=== PATIENT | female | born 1940 | race Caucasian/White ===

== ENCOUNTER → 2019-03-17 | Outpatient (CLI) | payer MEDICARE, OTHER ==
--- NOTE | 2019-03-17 11:21 | Diagnostic Imaging Report ---
PROCEDURE: MRI lumbar spine. TECHNIQUE: Multiplanar, multisequence MRI of the lumbar spine was performed without contrast. INDICATION: Right-sided lower back pain. COMPARISON: None. FINDINGS: For the purposes of this exam, last well-formed disc space is denoted to be the L5-S1 level. Evaluation of static alignment demonstrates moderate levoscoliotic deformity epicentered at the L1 level. No significant dana or retrolisthesis is seen. There is no evidence of jumped facets. Vertebral body heights are maintained. There is no evidence of acute fracture. Marrow signal demonstrates probable atypical hemangiomas within the T11 and T12 vertebral bodies. Otherwise, marrow signal is unremarkable. There is multilevel intervertebral disc height loss with anterior and posterior disc osteophyte complex formations. Visualized portions of the distal cord are unremarkable. Conus terminates at approximately the L1-L2 level. No abnormal intrathecal filling defects are seen. Pre-and paravertebral soft tissue structures are within normal limits. Axial images demonstrate the following: T12-L1: There is mild broad-based posterior disc bulge which results in minimal flattening of the anterior thecal sac. There is otherwise no significant spinal canal or neural foraminal stenosis. L1-L2: There is asymmetric right-sided endplate osteophyte formation resulting in mild asymmetric narrowing of the right neural foramen. Spinal canal and left neural foramen are unremarkable. L2-L3: There is mild broad-based posterior disc bulge and bilateral ligamentum flavum laxity and facet arthropathy. As a result, there is mild narrowing of the spinal canal and bilateral neural foramen. L3-L4: There is broad-based posterior disc bulge with bilateral ligamentum flavum laxity and facet arthropathy. As a result, there is mild narrowing of the spinal canal and bilateral neural foramen. L4-L5: There is broad-based posterior disc bulge with bilateral ligamentum flavum laxity and facet arthropathy. Multiple small synovial cysts are noted involving the bilateral facets both anteriorly and posteriorly as well. As a result, there is moderate spinal canal stenosis. There is also mild narrowing of the bilateral neural foramen. L5-S1: There is slight broad-based posterior disc bulge and bilateral facet arthropathy. As a result, there is mild narrowing of the spinal canal and bilateral neural foramen. IMPRESSION: 1. Multilevel degenerative changes of the lumbar spine, greatest at L4-L5. 2. No acute fracture or dislocation. Dictated by: Dictated on workstation # [id number]
== END ==
LOC: RAD 09:56
PROVIDERS: ATTEND Nurse Practitioner Family
DX: M47.816 Spondylosis without myelopathy or radiculopathy, lumbar region (principal)
CPT/HCPCS: 72148

== ENCOUNTER 2019-09-19 19:14 | Inpatient (IN) | payer MEDICARE, OTHER ==
[~2019-09-19] VITALS: Ht 154.9 cm; Wt 76.3 kg
--- NOTE | 2019-09-19 19:49 | ED Neurological Problem ---
General Chief Complaint: Neuro-Stroke Like Symptoms Stated Complaint: EYE PROBLEMS/CONFUSION/HIGH BLOOD PRESSURE History of Present Illness Date Seen by Provider: Sep 19, 2019 Time Seen by Provider: 19:45 Initial Comments Couple hours ago patient had an episode where she couldn't form words also had right-sided visual loss and then slight left-sided visual loss no weakness in ei ther extremity and weakness in the face lasted very transiently she is returned to normal now but has a headache is quite anxious her pressure is high she is concerned about the possibility of a stroke she's only on a couple medications has had no blood pressure problems in the past takes Xanax omeprazole Timing/Duration: 1-3 hours Associated Symptoms: No loss of consciousness, No nausea/vomiting, No paresthesia, No slurred speech, No trouble walking; vision changes; No weakness Allergies and Home Medications Allergies Coded Allergies: No Known Drug Allergies (Unverified Allergy, Mild, 07/16/09) Patient Home Medication List Home Medication List Reviewed: Yes Review of Systems Review of Systems Constitutional: No chills, No fever, No weakness Eyes: Blurred Vision, Decreased Acuity, Vision Changes Ears, Nose, Mouth, Throat: no symptoms reported; denies ear pain, denies nose pain Respiratory: No cough, No short of breath, No wheezing Cardiovascular: No chest pain, No palpitations Gastrointestinal: No abdominal pain, No nausea, No vomiting Genitourinary: No dysuria, No frequency Musculoskeletal: No joint swelling, No muscle pain, No muscle weakness, No neck pain Skin: No lesions, No rash Psychiatric/Neurological: Anxiety; Denies Headache, Denies Numbness, Denies Tingling, Denies Unable to Move Lower Ext, Denies Unable to Move Upper Ext, Denies Weakness Past Cjunsaw-Crbbvb-Ispqrs Hx Past Med/Social Hx: Reviewed Nursing Past Med/Soc Hx Patient Social History Alcohol Use: Denies Use Recreational Drug Use: No Smoking Status: Never a Smoker 2nd Hand Smoke Exposure: No Recent Foreign Travel: No Contact w/Someone Who Travel: No Recent Hopitalizations: No Physical Abuse: No Sexual Abuse: No Mistreated: No Fear: No Past Medical History Surgeries: No Respiratory: No Cardiac: No Neurological: No Reproductive Disorders: No Sexually Transmitted Disease: No Genitourinary: No Gastrointestinal: No Musculoskeletal: No Endocrine: No HEENT: No Cancer: No Psychosocial: No Integumentary: No Blood Disorders: No Physical Exam Vital Signs Vital Signs - First Documented 09/19/19 19:15 Temp 37.0 Pulse 103 Resp 20 B/P (MAP) 230/125 (160) Pulse Ox 98 O2 Delivery Room Air Capillary Refill : Height, Weight, BMI Height: '" Weight: lbs. oz. kg; BMI Method: General Appearance: WD/WN, mild distress HEENT: PERRL/EOMI, normal ENT inspection, TMs normal, pharynx normal Neck: non-tender, full range of motion; No carotid bruit Respiratory: lungs clear, normal breath sounds Cardiovascular: regular rate, rhythm, no murmur Gastrointestinal: normal bowel sounds, non tender, soft Extremities: normal range of motion, normal inspection Neurologic/Psychiatric: no motor/sensory deficits, alert, normal mood/affect, oriented x 3 Coordination/Gait: normal finger to nose, normal gait Motor/Sensory: no motor deficit, no sensory deficit Reflexes: 2+ Bicep (R), 2+ Bicep (L), 2+ Knee (R), 2+ Knee (L) Skin: normal color, warm/dry Stroke NIH Stroke Scale Assessment Level of Consciousness: 0=Alert (0), Level of Consciousness-Questions: 0=Answers both month/age (0), LOC Commands: 0=Performs both tasks (0), Visual Chen: 0=No visual loss (0), Facial Movement (Facial Paresis): 0=Normal symmetrical mnt (0), Motor Function-Arms Right: 0=No drift (0), Motor Function-Arms Left: 0=No drift (0), Motor Function-Legs Right: 0=No drift (0), Motor Function-Legs Left: 0=No drift (0), Limb Ataxia: 0=Absent (0), Sensory: 0=Normal:no loss (0), Best Language: 0=No aphasia (0), Dysarthria: 0=Normal (0), Extinction & Inattention: 0=No abnormality (0), Total: Progress/Results/Core Measures Results/Orders Lab Results Laboratory Tests Test 09/19/19 19:30 Range/Units White Blood Count 5.6 4.3-11.0 10^3/uL Red Blood Count 4.70 4.35-5.85 10^6/uL Hemoglobin 13.8 11.5-16.0 G/DL Hematocrit 43 35-52 % Mean Corpuscular Volume 92 80-99 FL Mean Corpuscular Hemoglobin 29 25-34 PG Mean Corpuscular Hemoglobin Concent 32 32-36 G/DL Red Cell Distribution Width 12.5 10.0-14.5 % Platelet Count 233 130-400 10^3/uL Mean Platelet Volume 9.8 7.4-10.4 FL Neutrophils (%) (Auto) 47 42-75 % Lymphocytes (%) (Auto) 40 12-44 % Monocytes (%) (Auto) 10 0-12 % Eosinophils (%) (Auto) 2 0-10 % Basophils (%) (Auto) 1 0-10 % Neutrophils # (Auto) 2.5 1.8-7.8 X 10^3 Lymphocytes # (Auto) 2.1 1.0-4.0 X 10^3 Monocytes # (Auto) 0.5 0.0-1.0 X 10^3 Eosinophils # (Auto) 0.1 0.0-0.3 10^3/uL Basophils # (Auto) 0.1 0.0-0.1 10^3/uL Neutrophils % (Manual) 46 % Lymphocytes % (Manual) 42 % Monocytes % (Manual) 9 % Eosinophils % (Manual) 1 % Basophils % (Manual) 1 % Band Neutrophils 1 % Blood Morphology Comment NORMAL Sodium Level 140 135-145 MMOL/L Potassium Level 4.4 3.6-5.0 MMOL/L Chloride Level 100 98-107 MMOL/L Carbon Dioxide Level 25 21-32 MMOL/L Anion Gap 15 H 5-14 MMOL/L Blood Urea Nitrogen 29 H 7-18 MG/DL Creatinine 0.88 0.60-1.30 MG/DL Estimat Glomerular Filtration Rate > 60 BUN/Creatinine Ratio 33 Glucose Level 105 70-105 MG/DL Calcium Level 10.0 8.5-10.1 MG/DL Corrected Calcium 8.5-10.1 MG/DL Total Bilirubin 0.4 0.1-1.0 MG/DL Aspartate Amino Transf (AST/SGOT) 22 5-34 U/L Alanine Aminotransferase (ALT/SGPT) 15 0-55 U/L Alkaline Phosphatase 82 40-136 U/L Total Protein 7.7 6.4-8.2 GM/DL Albumin 4.6 H 3.2-4.5 GM/DL Leslie SORENSENMARYLIN L JR, MD Cbc And Manual Diff (09/19/19 19:41) Comprehensive Metabolic Panel (09/19/19 19:41) Ua Culture If Indicated (09/19/19 19:41) Ekg Tracing (09/19/19 19:41) Ct Head Wo (09/19/19 19:49) Vital Signs/I&O 09/19/19 19:15 Temp 37.0 Pulse 103 Resp 20 B/P (MAP) 230/125 (160) Pulse Ox 98 O2 Delivery Room Air Progress Progress Note : Time: 21:28 Progress Note With a negative NIH and ABCD 2 score of 4 at this point we are observing her for stroke workup as well discussed with Dr. Nowak exception transferred down at [facility]. Initial ECG Impression Date: Sep 19, 2019 Initial ECG Impression Time: 19:26 Initial ECG Rhythm: Normal Sinus Initial ECG Intervals: Normal Initial ECG Impression: Normal Departure Communication (Admissions) Time/Spoke to Admitting Phy: 21:29 TIA with ABCD score of 400 for observation and further workup Impression Primary Impression: TIA (transient ischemic attack) Disposition: XFER SHT-TRM HOSP Condition: Stable Admissions Decision to Admit Reason: Admit from ER (General) Decision to Admit/Date: Sep 19, 2019 Time/Decision to Admit Time: 21:30 Transfer Transfer Reason: Exceeds level of care Departure-Patient Inst. Referrals: SUZANNE SELF APRN (PCP) Primary Care Physician MARYLIN SORENSEN JR, MD Sep 19, 2019 19:49
[2019-09-19 20:11] LABS: HEMATOCRIT 43 % (35-52); HEMOGLOBIN 13.8 G/DL (11.5-16.0); MEAN CORPUSCULAR HEMOGLOBIN 29 PG (25-34); MEAN CORPUSCULAR HGB CONC 32 G/DL (32-36); MEAN CORPUSCULAR VOLUME 92 FL (80-99); WHITE BLOOD COUNT 5.6 10^3/uL (4.3-11.0)
[2019-09-19 20:12] LABS: BASOPHILS # (AUTO) 0.1 10^3/uL (0.0-0.1); BASOPHILS % (AUTO) 1 % (0-10); EOSINOPHILS # (AUTO) 0.1 10^3/uL (0.0-0.3); EOSINOPHILS % (AUTO) 2 % (0-10); LYMPHOCYTES # (AUTO) 2.1 X 10^3 (1.0-4.0); LYMPHOCYTES % (AUTO) 40 % (12-44); MEAN PLATELET VOLUME 9.8 FL (7.4-10.4); MONOCYTES # (AUTO) 0.5 X 10^3 (0.0-1.0); MONOCYTES % (AUTO) 10 % (0-12); NEUTROPHILS # (AUTO) 2.5 X 10^3 (1.8-7.8); NEUTROPHILS % (AUTO) 47 % (42-75); PLATELET COUNT 233 10^3/uL (130-400); RED CELL DISTRIBUTION WIDTH 12.5 % (10.0-14.5)
[2019-09-19 20:28] LABS: BAND NEUTROPHILS 1 %; BASOPHILS % (MANUAL) 1 %; EOSINOPHILS % (MANUAL) 1 %; LYMPHOCYTES % (MANUAL) 42 %; MONOCYTES % (MANUAL) 9 %; NEUTROPHILS % (MANUAL) 46 %; RBC MORPH NORMAL
[2019-09-19 20:29] LABS: ALANINE AMINOTRANSFERASE 15 U/L (0-55); ALKALINE PHOSPHATASE 82 U/L (40-136); BILIRUBIN,TOTAL 0.4 MG/DL (0.1-1.0); BUN/CREATININE RATIO 33; CARBON DIOXIDE 25 MMOL/L (21-32); CHLORIDE 100 MMOL/L (98-107); CREATININE SERUM 0.88 MG/DL (0.60-1.30); GFR ESTIMATED > 60; GLUCOSE 105 MG/DL (70-105); POTASSIUM 4.4 MMOL/L (3.6-5.0); SODIUM 140 MMOL/L (135-145); TOTAL PROTEIN 7.7 GM/DL (6.4-8.2)
[2019-09-19 20:30] LABS: ALBUMIN 4.6 GM/DL (3.2-4.5)
--- NOTE | 2019-09-19 20:50 | Diagnostic Imaging Report ---
PROCEDURE: CT head without contrast. TECHNIQUE: Multiple contiguous axial images were obtained through the brain without the use of intravenous contrast. Auto Exposure Controls were utilized during the CT exam to meet ALARA standards for radiation dose reduction. INDICATION: Blurred vision There are no prior studies available for comparison. There is no mass, shift to the midline or hemorrhage to indicate an acute abnormality. The ventricles are not abnormally dilated. The bone windows show no evidence for a fracture or for a destructive lesion. The orbits are symmetrical and within normal limits. The sinuses, where visualized, are clear. IMPRESSION: 1. There is no evidence for an acute intracranial abnormality. There is no sign of a mass lesion either. 2. If clinical concern regarding an underlying abnormality persists, then MRI would be recommended for further study. Dictated by: Dictated on workstation # [id number]
[2019-09-19] MEDS ORDERED: ASPIRIN 81 MG CHEW (CHILDREN'S ASA) ONE (21:38)
[2019-09-19] MEDS ORDERED: ASPIRIN 81 MG CHEW (CHILDREN'S ASA) PO SCH (21:45)
[2019-09-19] MEDS ORDERED: CLOPIDOGREL 300 MG (PLAVIX) TABLET PO ONE (21:45)
[2019-09-19 22:38] LABS: BACTERIA,URINE NEGATIVE /HPF; BILIRUBIN,URINE NEGATIVE (NEGATIVE); CLARITY,URINE CLEAR; COLOR,URINE PALE YELLOW; GLUCOSE, URINE (UA) NEGATIVE (NEGATIVE); KETONES,URINE NEGATIVE (NEGATIVE); LEUKOCYTE ESTERASE ,URINE NEGATIVE (NEGATIVE); NITRITE,URINE NEGATIVE (NEGATIVE); PROTEIN,URINE NEGATIVE (NEGATIVE); SQUAMOUS EPITHELIAL CELL,UR 0-2 /HPF; WBC,URINE RARE /HPF
--- NOTE | 2019-09-19 22:51 | NUR ---
GARIMA ONTIVEROS admitted to room 415-1, with an admitting diagnosis of TIA, on 09/19/19 from [place] ED via EMS, accompanied by EMS AND SON.GARIMA ONTIVEROS introduced to surroundings, call light, bed controls, phone, TV, temperature control, lights, meal times, smoking policy, visitor policy, side rail policy, bathrooms and showers. Patient Rights given to patient in the handbook. GARIMA ONTIVEROS verbalizes understanding that [facility] is not responsible for the loss or damage to any personal effects or valuables that are kept in the patients possession during their hospitalization. GARIMA ONTIVEROS verbalizes understanding of Interdisciplinary Patient Education. Patient and/or family were informed about the Rapid Response Team and its purpose.
[2019-09-19 23:06] VITALS: BP 187/110
--- NOTE | 2019-09-19 23:14 | NUR ---
PT B/P 187/110. PULSE 114. DR. WALTERS CALLED ORDER TO GIVE 1 TIME DOSE METOPROLOL 5MG IV AND TELEMETRY.
[2019-09-19] MEDS ORDERED: meTOprolol 5 MG/5 ML (LOPRESSOR) VIAL IV ONE (23:15)
[2019-09-19] MEDS ORDERED: meTOprolol 5 MG/5 ML (LOPRESSOR) VIAL ONE (23:38)
[2019-09-20 02:01] VITALS: BP 187/82
[2019-09-20 04:22] VITALS: BP 178/75
[2019-09-20 07:03] LABS: BASOPHILS % (AUTO) 1 % (0-10); EOSINOPHILS # (AUTO) 0.1 10^3/uL (0.0-0.3); EOSINOPHILS % (AUTO) 3 % (0-10); HEMATOCRIT 39 % (35-52); HEMOGLOBIN 12.6 G/DL (11.5-16.0); LYMPHOCYTES # (AUTO) 1.4 X 10^3 (1.0-4.0); LYMPHOCYTES % (AUTO) 33 % (12-44); MEAN CORPUSCULAR HEMOGLOBIN 29 PG (25-34); MEAN CORPUSCULAR HGB CONC 33 G/DL (32-36); MEAN CORPUSCULAR VOLUME 89 FL (80-99); MONOCYTES # (AUTO) 0.4 X 10^3 (0.0-1.0); MONOCYTES % (AUTO) 10 % (0-12); NEUTROPHILS # (AUTO) 2.4 X 10^3 (1.8-7.8); NEUTROPHILS % (AUTO) 54 % (42-75); PLATELET COUNT 197 10^3/uL (130-400); RED CELL DISTRIBUTION WIDTH 12.7 % (10.0-14.5); WHITE BLOOD COUNT 4.4 10^3/uL (4.3-11.0)
[2019-09-20 07:21] LABS: BUN/CREATININE RATIO 31; CALCIUM 9.3 MG/DL (8.5-10.1); CARBON DIOXIDE 23 MMOL/L (21-32); CHLORIDE 107 MMOL/L (98-107); CREATININE SERUM 0.78 MG/DL (0.60-1.30); GFR ESTIMATED > 60; GLUCOSE 95 MG/DL (70-105); POTASSIUM 4.1 MMOL/L (3.6-5.0); SODIUM 142 MMOL/L (135-145)
[2019-09-20 08:00] VITALS: BP 181/93
[2019-09-20] MEDS ORDERED: OMEP20CA13 PO (08:23)
[2019-09-20] MEDS ORDERED: ALPR0.5T7 PO (08:23)
[2019-09-20] MEDS ORDERED: MELO15TA39 PO (08:23)
--- NOTE | 2019-09-20 08:23 | NUR ---
NURSE RON CAME AND STATES PATIENT LISTED HER MEDICATIONS TO HER, SHE GAVE ME THE THREE PRESCRIPTION MEDS AND STATES THE PATIENT DOES NOT TAKE ANYTHING OTC. I UPDATED THE MED REC WITH THE LIST NURSE GAVE ME, IT MATCHES WHAT HAS BEEN FILLED ACCORDING TO THE EXT MED HX. I DID NOT RE INTERVIEW THE PATIENT AT THIS TIME.
[2019-09-20] MEDS ORDERED: ASPIRIN 81 MG CHEW (CHILDREN'S ASA) PO SCH (09:00)
[2019-09-20] MEDS ORDERED: GADOBUTROL 10 MMOL/10 ML (GADAVIST) VIAL IV ONE (10:30)
[2019-09-20] MEDS ORDERED: PANTOPRAZOLE 20 MG TABLET (PROTONIX) PO SCH (10:42)
--- NOTE | 2019-09-20 11:15 | NUR ---
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 Pt reports she is feeling better and is not having any symptoms. Pt reports she wants to go home today hopefully. Pt reports she has been well and never had a hospital stay. Pt aware they may be some tests, to determine that she is stable and about to discharge. She verbalizes understanding.
[2019-09-20 12:30] VITALS: BP 193/91
--- NOTE | 2019-09-20 12:33 | Diagnostic Imaging Report ---
EXAM: MRI BRAIN W/O CONTRAST INDICATION: Visual disturbances. COMPARISON: CT head without contrast 09/19/2019. FINDINGS: Moderate nonspecific T2 hyperintensities in the supratentorial white matter, chronic small vessel ischemic change. Mild generalized cerebral and cerebellar parenchymal volume loss. No restricted water diffusion or hemosiderin deposition. Normal morphology including the major midline structures, sella, posterior fossa and cerebellopontine angle. Normal intracranial flow voids. No hydrocephalus or extra-axial fluid collections. Postoperative changes in the globes. Paranasal sinuses and mastoids are clear. Normal bone marrow signal. IMPRESSION: Age-appropriate MRI of the brain. No acute findings. Dictated by: Dictated on workstation # [id number]
--- NOTE | 2019-09-20 12:34 | Diagnostic Imaging Report ---
PROCEDURE: MR angiography neck with contrast. TECHNIQUE: Contrast-enhanced MR angiography of the neck was performed. Source data was reformatted into rotating MIP projection. INDICATION: Visual disturbances. Hypertension. COMPARISON: None. FINDINGS: Contrast enhanced MRA of the neck demonstrates conventional aortic arch. The bilateral common, internal carotid and vertebral arteries are widely patent. No evidence of aneurysm or dissection. IMPRESSION: Normal MRA of the neck. Dictated by: Dictated on workstation # [id number]
--- NOTE | 2019-09-20 12:35 | Diagnostic Imaging Report ---
PROCEDURE: MR angiography of the brain without the use of contrast. TECHNIQUE: 3D [id number] non contrast enhanced MR angiography of the head was performed. A source data was reformatted into rotating MIP projections. INDICATION: Visual disturbances. Hypertension. COMPARISON: MRI brain also performed today. FINDINGS: Noncontrast [id number] intracranial MRA demonstrates a widely patent basilar, intracranial vertebral, internal carotid, anterior cerebral, middle cerebral and posterior cerebral arteries without evidence of aneurysm or dissection. IMPRESSION: Normal intracranial MRA. Dictated by: Dictated on workstation # [id number]
[2019-09-20] MEDS ORDERED: HYDROCHLOROTHIAZIDE 25 MG (HCTZ) TAB ONE (13:23)
[2019-09-20] MEDS ORDERED: HYDROCHLOROTHIAZIDE 25 MG (HCTZ) TAB PO NR (13:30)
--- NOTE | 2019-09-20 14:22 | Consultation-Cardiology ---
HPI-Cardiology Cardiology Consultation Date of Consultation 09/20/19 Date of Admission Time Seen by Provider: 14:16 Indication: Hypertensive emergency, TIA HPI Patient is a very pleasant 79 y/o female with no significant PMH, takes occasional Xanax for anxiety, history of GERD. Presented to [place] ER last night with complaints of aphasia. States she was visiting at a friends house when she had sudden onset of diffculty forming words, lasting approx 30min-1 hour. Associated transient loss of vision. Denies any one sided weakness. When patient arrived to ER she was noted to be severely hypertensive. Symptoms are now completely resolved. Denies any chest pain, dyspnea, dizziness or lightheadedness. 79-year-old lady admitted with hypertension and change in mental status, workup was described below, on my evaluation she was feeling well, asking to go home, dressed and ready to go. Was still severely hypertensive. Reporting occasional headache in the past. No chest pain. No palpitation. No syncope. Home Medications & Allergies Allergies: Coded Allergies: No Known Drug Allergies (Unverified , 07/16/09) Home Medication List Reviewed: Yes IBM-Bqewrr-Bxguwp Hx Patient Social History Marital Status: Employed/Student: retired Alcohol Use: Denies Use Recreational Drug Use: No Smoking Status: Never a Smoker 2nd Hand Smoke Exposure: No Recent Foreign Travel: No Recent Infectious Disease Expo: No Recent Hopitalizations: No Immunizations Up To Date Date of Influenza Vaccine: May 21, 2019 Past Medical History Anxiety GERD Family Medical History Significant Family History: CAD Over 55 Years Old Review of Systems-General Review of Systems Constitutional: see HPI; No chills, No diaphoresis, No fever, No weakness EENTM: blurred vision, vision loss (transient); No hearing loss Respiratory: No cough, No dyspnea on exertion, No orthopnea, No phlegm, No short of breath, No wheezing Cardiovascular: No chest pain, No edema, No Hx of Intervention, No palpitations, No syncope, No vascular heart diseas Gastrointestinal: No abdominal pain, No nausea, No vomiting Genitourinary: No dysuria, No frequency Musculoskeletal: No joint pain, No joint swelling, No muscle pain, No muscle weakness, No neck pain Skin: No lesions, No rash Psychiatric/Neurological: Anxiety Reviewed Test Results Reviewed Test Results Lab Laboratory Tests 09/19/19 19:30: White Blood Count 5.6, Red Blood Count 4.70, Hemoglobin 13.8, Hematocrit 43, Mean Corpuscular Volume 92, Mean Corpuscular Hemoglobin 29, Mean Corpuscular Hemoglobin Concent 32, Red Cell Distribution Width 12.5, Platelet Count 233, Mean Platelet Volume 9.8, Neutrophils (%) (Auto) 47, Lymphocytes (%) (Auto) 40, Monocytes (%) (Auto) 10, Eosinophils (%) (Auto) 2, Basophils (%) (Auto) 1, Neutrophils # (Auto) 2.5, Lymphocytes # (Auto) 2.1, Monocytes # (Auto) 0.5, Eosinophils # (Auto) 0.1, Basophils # (Auto) 0.1, Neutrophils % (Manual) 46, Lymphocytes % (Manual) 42, Monocytes % (Manual) 9, Eosinophils % (Manual) 1, Basophils % (Manual) 1, Band Neutrophils 1, Blood Morphology Comment NORMAL, Sodium Level 140, Potassium Level 4.4, Chloride Level 100, Carbon Dioxide Level 25, Anion Gap 15H, Blood Urea Nitrogen 29H, Creatinine 0.88, Estimat Glomerular Filtration Rate > 60, BUN/Creatinine Ratio 33, Glucose Level 105, Calcium Level 10.0, Corrected Calcium , Total Bilirubin 0.4, Aspartate Amino Transf (AST/SGOT) 22, Alanine Aminotransferase (ALT/SGPT) 15, Alkaline Phosphatase 82, Total Protein 7.7, Albumin 4.6H 09/19/19 22:00: Urine Color PALE YELLOW, Urine Clarity CLEAR, Urine pH 7.0, Urine Specific [place] 1.015L, Urine Protein NEGATIVE, Urine Glucose (UA) NEGATIVE, Urine Ketones NEGATIVE, Urine Nitrite NEGATIVE, Urine Bilirubin NEGATIVE, Urine Urobilinogen 0.2, Urine Leukocyte Esterase NEGATIVE, Urine RBC (Auto) NEGATIVE, Urine RBC NONE, Urine WBC RARE, Urine Squamous Epithelial Cells 0-2, Urine Crystals NONE, Urine Bacteria NEGATIVE, Urine Casts NONE, Urine Mucus NEGATIVE, Urine Culture Indicated NO 09/20/19 05:29: White Blood Count 4.4, Red Blood Count 4.33L, Hemoglobin 12.6, Hematocrit 39, Mean Corpuscular Volume 89, Mean Corpuscular Hemoglobin 29, Mean Corpuscular Hemoglobin Concent 33, Red Cell Distribution Width 12.7, Platelet Count 197, Mean Platelet Volume 10.0, Neutrophils (%) (Auto) 54, Lymphocytes (%) (Auto) 33, Monocytes (%) (Auto) 10, Eosinophils (%) (Auto) 3, Basophils (%) (Auto) 1, Neutrophils # (Auto) 2.4, Lymphocytes # (Auto) 1.4, Monocytes # (Auto) 0.4, Eosinophils # (Auto) 0.1, Basophils # (Auto) 0.0, Sodium Level 142, Potassium Level 4.1, Chloride Level 107, Carbon Dioxide Level 23, Anion Gap 12, Blood Urea Nitrogen 24H, Creatinine 0.78, Estimat Glomerular Filtration Rate > 60, BUN/Creatinine Ratio 31, Glucose Level 95, Calcium Level 9.3 ECG Impression ECG Initial ECG Rhythm: Normal Sinus Physical Exam Physical Exam Vital Signs Vital Signs - First Documented 09/19/19 19:15 Temp 37.0 Pulse 103 Resp 20 B/P (MAP) 230/125 (160) Pulse Ox 98 O2 Delivery Room Air Capillary Refill : Less Than 3 Seconds Height, Weight, BMI Height: '" Weight: lbs. oz. kg; 31.79 BMI Method: General Appearance: No Apparent Distress, WD/WN HEENT: PERRL/EOMI, Normal ENT Inspection Neck: Full Range of Motion, Non Tender, Supple Respiratory: Chest Non Tender, Lungs Clear, Normal Breath Sounds, No Accessory Muscle Use, No Respiratory Distress Cardiovascular: Regular Rate, Rhythm, No Edema, No Gallop, No JVD, No Murmur, Normal Peripheral Pulses Gastrointestinal: Normal Bowel Sounds, No Organomegaly, Non Tender, Soft Rectal: Deferred Back: No CVA Tenderness Extremity: Non Tender, No Calf Tenderness, No Pedal Edema Neurologic/Psychiatric: Alert, Oriented x3, water manager II-XII Norm as Tested Reflexes: 2+ Bicep (R), 2+ Bicep (L), 2+ Knee (R), 2+ Knee (L) A/P-Cardiology Admission Diagnosis Hypertensive emergency TIA Anxiety GERD Fam Hx CAD Assessment/Plan Hypertensive emergency- lopressor IV given in ER yesterday. Started on HCTZ. BP is elevated, I will d/c HCTZ, give additional IV Lopressor 5mg IV. Start Toprol XL 25mg daily, start lisinopril 10mg daily. Results of 2d Echo pending. TIA with aphasia and transient loss of vision, symptoms resolved. CT Head, MRA h ead, neck, brain all WNL. No acute process. GERD- maintained on Protonix Anxiety- maintained on Xanax PRN Fam Hx CAD with father with CABG > 55 y/o Thank you for allowing us to participate in the manangement of Ms. Fraire. This is Vaishnavi Muller PA-C, as a scribe for Dr. Cherry. Patient was seen and evaluated with Vaishnavi, examination performed, management plan was discussed, agree with the current scribed note, I made few changes to the note using Italic font Patient was ready to go home, on examination lungs were clear to auscultation, heart is regular, still hypertensive, she was given lisinopril 10 mg then another dose of 10 mg and Lopressor 5 mg IV and Toprol-XL 25 mg orally Discussed the management plan and recommended monitoring her blood pressure twice a day, using additional doses of lisinopril and Toprol as needed for elevated blood pressure over 180 Will discharge on Toprol-XL 25 mg daily and lisinopril 10 mg daily and hold off on the hydrochlorothiazide for now Clinical Quality Measures DVT/VTE Risk/Contraindication: Risk Factor Score Per Nursin RFS Level Per Nursing on Admit: 2=Moderate VAISHNAVI PIPER Sep 20, 2019 14:22 CHRISTIE CHERRY MD Sep 20, 2019 16:13
[2019-09-20] MEDS ORDERED: lisINopril 10 MG (PRINIVIL) TABLET PO SCH (14:30)
[2019-09-20] MEDS ORDERED: meTOprolol 5 MG/5 ML (LOPRESSOR) VIAL IV NR (14:30)
[2019-09-20 15:05] VITALS: BP 193/91
[2019-09-20] MEDS ORDERED: LISI10TA2 PO (15:09)
[2019-09-20] MEDS ORDERED: METO-387 PO (15:09)
[2019-09-20] MEDS ORDERED: lisINopril 10 MG (PRINIVIL) TABLET PO ONE (15:30)
--- NOTE | 2019-09-20 15:30 | NUR ---
CM/SS: Pt will leave today with scripts for medication and appointment scheduled with Dr. Cherry. No other identified needs. Pt is eager to return home.
[2019-09-20 16:54] LABS: CHOLESTEROL 206 MG/DL (< 200); HDL CHOLESTEROL 66 MG/DL (40-60); TRIGLYCERIDES 71 MG/DL (<150); VLDL CHOLESTEROL 14 MG/DL (5-40)
[2019-09-21] MEDS ORDERED: HYDROCHLOROTHIAZIDE 25 MG (HCTZ) TAB PO SCH (09:00)
--- NOTE | 2019-09-22 14:13 | Short Stay Summary ---
HPI History of Present Illness: Patient noted about 5 hours before arrival she was having trouble seeing out of right eye when trying to read, she also noted some difficulty with left eye but significantly less. She was then sitting at a long-term visiting and listening to the conversation going on around here she could not seem to understand what was going on, although she understood the individual words. She also felt she could not speak properly, could not put a thought together correctly although she could say words. A nurse there took her BP which was very high and they told her to go to the ER. Her symptoms resolved before leaving the ER and this morning she feels like her usual self. She does not have a history of hypertension, but has not been to see the doctor in a while as she is generally quite healthy. Source: patient Date seen by provider: Sep 22, 2019 Time Seen by Provider: 13:30 Attending Physician Rashi Werner MD PCP Shelby Guzmán Aprn Consult Date of Admission Sep 19, 2019 at 21:30 Home Medications Home Medications Reviewed patient Home Medication Reconciliation performed by pharmacy medication reconciliations photovoltaic installation technician and/or nursing. Patients Allergies have been reviewed. Allergies Coded Allergies: No Known Drug Allergies (Unverified , 07/16/09) UFC-[id number]-[id number] Hx Patient Social History Marrital Status: Employed/Student: retired Alcohol Use: Denies Use Recreational Drug Use: No Smoking Status: Never a Smoker 2nd Hand Smoke Exposure: No Recent Foreign Travel: No Contact w/other who traveled: No Recent Hopitalizations: No Recent Infectious Disease Expo: No Immunizations Up To Date Date of Influenza Vaccine: May 21, 2019 Past Medical History PMHx: GERD Anxiety SurgHx: Hysterectomy Bunion surgery Tonsillectomy and adenoidectomy Family Medical History Significant Family History: CAD Over 55 Years Old Review of Systems ([facility]) Constitutional: No fever EENTM: No nose congestion, No throat pain Respiratory: No cough Cardiovascular: No chest pain Gastrointestinal: No abdominal pain, No constipation, No diarrhea, No nausea, No vomiting Genitourinary: No dysuria Musculoskeletal: no symptoms reported Skin: No rash Psychiatric/Neurological: No Symptoms Reported Reviewed Test Results Reviewed Test Results Radiology 09/19 CT head: IMPRESSION: 1. There is no evidence for an acute intracranial abnormality. There is no sign of a mass lesion either. 2. If clinical concern regarding an underlying abnormality persists, then MRI would be recommended for further study. 09/20 MRA neck and head normal 09/20 MRI brain IMPRESSION: Age-appropriate MRI of the brain. No acute findings. Physical Exam-([facility]) Physical Exam Vital Signs VS - Last 72 Hours, by Label 09/19/19 09/19/19 09/19/19 09/19/19 19:15 21:53 22:51 23:06 Temp 37.0 37.4 Pulse 103 90 107 Resp 20 20 22 B/P (MAP) 230/125 (160) 178/88 187/110 Pulse Ox 98 97 96 O2 Delivery Room Air Room Air Room Air Room Air 09/19/19 09/19/19 09/20/19 09/20/19 23:06 23:45 01:00 02:01 Temp 37.4 Pulse 107 90 81 74 Resp 20 B/P (MAP) 187/110 (135) 187/82 (117) Pulse Ox 96 96 O2 Delivery Room Air Room Air 09/20/19 09/20/19 09/20/19 09/20/19 04:22 07:00 08:00 08:00 Temp 37.0 36.2 36.2 Pulse 83 80 77 77 Resp 18 18 18 B/P (MAP) 178/75 (109) 181/93 (122) 181/93 (122) Pulse Ox 96 96 96 O2 Delivery Room Air Room Air Room Air 09/20/19 09/20/19 09/20/19 09/20/19 08:00 12:30 13:00 15:05 Temp 36.8 36.8 Pulse 90 81 81 Resp 18 18 B/P (MAP) 193/91 (125) 193/91 Pulse Ox 96 96 96 O2 Delivery Room Air Room Air Room Air Capillary Refill : Less Than 3 Seconds General Appearance: WD/WN, no apparent distress HEENT: PERRL/EOMI Respiratory: lungs clear, normal breath sounds Cardiovascular: regular rate, rhythm, no murmur Gastrointestinal: normal bowel sounds, non tender, soft Extremities: no pedal edema Neurologic/Psychiatric: abstract manager II-XII nml as tested, alert, normal mood/affect, oriented x 3; No abnormal cerebellar tests, No motor weakness Skin: normal color, warm/dry Short Stay Diagnosis Discharge Diagnosis-Short Stay Admission Diagnosis TIA Final Discharge Diagnosis TIA Conclusion Plan See problem list Was the Problem List Reviewed?: Yes Clinical Quality Measures DVT/VTE Risk/Contraindication: Risk Factor Score Per Nursin RFS Level Per Nursing on Admit: 2=Moderate Stroke: Quality Measures-Stroke Pt: D/C'd on Antithrombotic, D/C'd on statin (for LDL>=70), Lipid panel ordered Copy Copies To 1: Shelby Guzmán APRN Assessment/Plan Assessment/Plan (1) TIA (transient ischemic attack) Assessment & Plan: Normal MRI brain, MRA head and neck and echocardiogram with mild ventricular wall thickening, EF 55-65% and parameters consistent with grade 1 diastolic dysfunction. Started on aspirin. Patient was at baseline functioning with no symptoms so did not require ST/PT/OT/Rehab eval. (2) Hypertension Assessment & Plan: Severe, started on lisinopril and metoprolol per Cardiology, further work-up/follow up outpatient. (3) GERD (gastroesophageal reflux disease) (4) Hyperlipidemia Assessment & Plan: LDL 137, was not run until patient discharged, will have clinic contact patient to start on statin. RASHI WERNER MD Sep 22, 2019 14:13
[2019-09-22] MEDS ORDERED: ASPI-808 PO (16:02)
[2019-09-22] MEDS ORDERED: ATOR40TA70 PO (16:02)
== END 2019-09-20 15:33 | disposition home or self-care (01) | DRG 305 ==
LOC: EDUNIT# 19:14 → ER FS 19:16 → 4TH 21:30
PROVIDERS: ADMIT Family Medicine; ATTEND Family Medicine
DX: I16.1 Hypertensive emergency (principal); G45.9 Transient cerebral ischemic attack, unspecified; F41.9 Anxiety disorder, unspecified; K21.9 Gastro-esophageal reflux disease without esophagitis
CPT/HCPCS: 36415; 70450; 70544; 70548; 70551; 80048; 80053; 80061; 81000; 85007; 85025; 85027; 93005; 93306; G0378

== ENCOUNTER → 2019-10-25 | Outpatient (CLI) | payer MEDICARE, OTHER ==
[~2019-10-25] VITALS: Ht 154 cm; Wt 76.0 kg
[~2019-10-25] MED LIST: ALPR0.5T7 PO; ASPI-808 PO; ATOR40TA70 PO; CATHETER FLUSH 10 ML SYR IV PRN; LISI10TA2 PO; MELO15TA39 PO; MTP25TSR PO; OMEP-280 PO
[2019-10-25 09:22] VITALS: BP 188/76
--- NOTE | 2019-10-25 19:15 | STRESS TEST ---
DATE OF SERVICE: 10/25/2019 EXERCISE MYOVIEW STRESS TEST REPORT REFERRING PHYSICIAN: [facility]. Baseline heart rate is 51. Baseline blood pressure 188/76. Baseline EKG is sinus rhythm with no ischemic changes. In summary, the patient was injected with 10.97 mCi of technetium-99 Myoview and the resting images were obtained. Then, the patient started exercising with a baseline heart rate, blood pressure and EKG mentioned above. At peak exercise level, the patient was injected with 31.9 mCi of technetium-99 Myoview. The patient was able to exercise for 3 minutes on standard Adan protocol. With peak exercise level, EKG was showing minimal nondiagnostic changes. Peak blood pressure was 217/97. During recovery, heart rate and blood pressure returned to baseline. EKG returned to baseline. The resting and stress images were reviewed and compared in the short axis, horizontal long axis, and vertical long axis views. Review of the images showed good radiotracer uptake with no significant ischemia or infarction. SSS is 2, SDS 2, TID value 1.09. On the gated images, the left ventricle appeared to be normal size with normal contractility. Calculated ejection fraction 60%. CONCLUSION: 1. Good exercise tolerance for a total of 3 minutes on standard Adan protocol, total of 4.4 METS achieving 93% of maximum expected heart rate. 2. Severe hypertensive response to exercise with peak blood pressure, 217/97. 3. Minimal nondiagnostic EKG changes with exercise returned to baseline during recovery. 4. No ischemia or infarction on SPECT images. 5. Normal left ventricular size with normal contractility. Calculated ejection fraction 60%. Job ID: [id number] DocumentID: [id number] Dictated Date: 10/25/2019 15:07:45 Director Life Sciences Date: 10/25/2019 19:14:11 Dictated By: CHRISTIE GOMEZ MD
== END ==
LOC: CARD 07:45
PROVIDERS: ATTEND Physician Assistant
DX: I10 Essential (primary) hypertension (principal); K21.9 Gastro-esophageal reflux disease without esophagitis; E66.9 Obesity, unspecified
CPT/HCPCS: 78452; 93017

== ENCOUNTER 2021-01-29 12:30 | Outpatient (RCR) | payer MEDICARE, OTHER ==
[~2021-01-29 12:30] MED LIST changes: -CATHETER FLUSH 10 ML SYR IV PRN; -LISI10TA2 PO; +LISI10TA25 PO; -OMEP-280 PO; +OMEP20CA18 PO
== END 2021-04-29 | disposition home or self-care (01) ==
LOC: CARD 12:30
PROVIDERS: ATTEND Nurse Practitioner Family
DX: R00.2 Palpitations (principal)
CPT/HCPCS: 93225; 93226

== ENCOUNTER 2021-03-29 11:45 | Emergency (ER) | payer MEDICARE, OTHER ==
[~2021-03-29] VITALS: Ht 157 cm; Wt 72.0 kg
[2021-03-29 12:02] VITALS: BP_SYST 95
--- NOTE | 2021-03-29 12:05 | ED Head Injury ---
General Chief Complaint: Head/Cervical Problems Stated Complaint: FALL - HEAD INJ History of Present Illness Date Seen by Provider: Mar 29, 2021 Time Seen by Provider: 12:04 Initial Comments 80-year-old female was outdoors at her house and tripped accidentally falling backwards hitting her head on the ground. Denies loss of consciousness, headache, feeling dazed or confused, nausea or vomiting, dizziness, weakness or paresthesias. Denies neck pain or extremity injury. She does not take a blood thinner, just a baby aspirin, denies a history of CVA or other intracranial type bleed Allergies and Home Medications Allergies Coded Allergies: No Known Drug Allergies (Unverified , 07/16/09) Home Medications Alprazolam 0.5 Mg Tablet, 0.25 MG PO BID PRN for ANXIETY, (Reported) TAKES 1/2 (0.5MG) TABLET Aspirin 325 Mg Tablet, 325 MG PO DAILY Prescribed by: RASHI WALTERS on 09/22/19 1602 Atorvastatin Calcium 40 Mg Tablet, 40 MG PO DAILY Prescribed by: RASHI WALTERS on 09/22/19 1602 Lisinopril 10 Mg Tablet, 10 MG PO DAILY Prescribed by: FLEX MONTOYA on 09/20/19 1509 Meloxicam 15 Mg Tablet, 15 MG PO DAILY, (Reported) Metoprolol Succinate 25 Mg Tab.er.24h, 25 MG PO DAILY Prescribed by: FLEX MONTOYA on 09/20/19 1509 Omeprazole 20 Mg Capsule.dr, 20 MG PO DAILY, (Reported) Patient Home Medication List Home Medication List Reviewed: Yes Review of Systems Review of Systems Constitutional: No fever, No malaise, No weakness Eyes: Denies Blindness, Denies Blurred Vision, Denies Pain, Denies Photophobia; Glasses Ears, Nose, Mouth, Throat: no symptoms reported; denies ear pain, denies nose discharge, denies loose teeth Respiratory: No cough, No short of breath Cardiovascular: No chest pain, No edema Gastrointestinal: No abdominal pain, No nausea, No vomiting Musculoskeletal: No back pain, No joint pain; muscle pain Skin: No change in color, No rash Psychiatric/Neurological: Denies Headache, Denies Numbness, Denies Unable to Move Lower Ext, Denies Unable to Move Upper Ext, Denies Weakness Past [id number]-[id number]-Fjvvga Hx Patient Social History Tobacco Use?: No Past Medical History Surgeries: No Respiratory: No Cardiac: No Neurological: No Reproductive Disorders: No Sexually Transmitted Disease: No Genitourinary: No Gastrointestinal: No Musculoskeletal: No Endocrine: No HEENT: No Cancer: No Psychosocial: No Integumentary: No Blood Disorders: No Family Medical History CAD Over 55 Years Old Physical Exam Vital Signs Capillary Refill : Height, Weight, BMI Height: '" Weight: lbs. oz. kg; 32.04 BMI Method: General Appearance: WD/WN, no apparent distress HEENT: PERRL/EOMI, normal ENT inspection Neck: non-tender, full range of motion, supple, normal inspection; No limited range of motion, No tender lateral, No tender midline Crainal Nerves: normal hearing, normal speech, PERRL, abnormal eye position Coordination/Gait: normal finger to nose, normal gait Motor/Sensory: no motor deficit, no sensory deficit, no pronator drift Skin: normal color, warm/dry Departure Impression Primary Impression: Closed head injury Qualified Codes: S09.90XA - Unspecified injury of head, initial encounter Disposition: 01 HOME, SELF-CARE Condition: Stable Departure-Patient Inst. Decision time for Depature: 12:20 Referrals: SUZANNE SELF APRN (PCP/Family) Primary Care Physician Patient Instructions: Closed Head Injury (DC) Add. Discharge Instructions: follow up with your PCP in 1 week for any further questions. Follow up to the nearest ER for any significant changes: mental status, persistent headache, persistent vomiting, confusion All discharge instructions reviewed with patient and/or family. Voiced understanding. KVNG GARNER DO Mar 29, 2021 12:05
== END 2021-03-29 12:35 | disposition home or self-care (01) ==
LOC: EDUNIT# 11:45 → ER FS 11:47
DX: S09.90XA Unspecified injury of head, initial encounter (principal); W01.198A Fall on same level from slipping, tripping and stumbling with subsequent striking against other object, initial encounter
CPT/HCPCS: 99282